=== PATIENT | female | born 1995 | race Hispanic/Latino ===

== ENCOUNTER 2017-06-14 09:50 | Outpatient (CLI) | payer OTHER ==
--- NOTE | 2017-06-14 12:20 | MRI ---
BRAIN MRI WITH AND WITHOUT CONTRAST: INDICATION: Confusion and disorientation in a 22-year-old female. COMPARISON: No prior comparison. FINDINGS: Ventricular system is normal in size. Septum pellucidum and third ventricle are midline. There is n o evidence of acute territorial infarction or intracranial hemorrhagic susceptibility. No pathologic enhancing intraaxial mass. Central skull base flow voids are patent. There is non-specific soft ti ssue prominence at the right palatine tonsil. Correlate with direct visualization. IMPRESSION: Normal contrast-enhanced brain MRI. POS: ANDREI
== END 2017-06-14 09:51 | disposition home or self-care (01) ==
LOC: MRI 09:50
PROVIDERS: ATTEND Psychiatry & Neurology Neurology
DX: R41.0 Disorientation, unspecified (principal)
CPT/HCPCS: 70553; 95816